=== PATIENT | female | born 1980 | race Caucasian/White ===

== ENCOUNTER 2016-12-09 07:48 | Emergency (ER) | payer MEDICARE, OTHER ==
[2016-12-09] MEDS ORDERED: NS 0.9% 1000 ML* 2,000 ML IV ONE (08:06)
[2016-12-09] MEDS ORDERED: Ketorolac INJ* 30 MG/ML 1 ML VIAL IV ONE (08:06)
[2016-12-09] MEDS ORDERED: Acetaminophen TAB* 325 MG PO ONE (08:06)
[2016-12-09 08:09] VITALS: BP 133/75
--- NOTE | 2016-12-09 08:13 | ED ---
Influenza-Like Illness - HPI Summary HPI Summary: Patient presents with two days of chest congestion, body aches, chills and fatigue. She is worried she has the flu. She says she has felt too bad to get to [facility]. No LEROY, neck pain, flank pain, constipation, N/V/D. - History of Current Complaint Time Seen by Provider: 12/09/16 07:53 Hx Obtained From: Patient Onset/Duration: Gradual Onset Severity: Severe Associated Signs & Symptoms: Myalgia, Nasal Congestion Related Hx: Possible Flu/Infectious Exposure - Allergy/Home Medications Allergies/Adverse Reactions: Allergies Allergy/AdvReac Type Severity Reaction Status Date / Time No Known Allergies Allergy Verified 03/08/16 13:05 PMH/Surg Hx/FS Hx/Imm Hx Endocrine/Hematology History: Reports: Hx Diabetes - gestational, Hx Thyroid Disease - nodule removed Cardiovascular History: Denies: Hx Hypertension Respiratory History: Denies: Hx Asthma, Hx Chronic Obstructive Pulmonary Disease (COPD) GI History: Denies: Hx Ulcer Psychiatric History: Reports: Hx of Violent Episodes Against Others Denies: Hx Eating Disorder - Surgical History Surgery Procedure, Year, and Place: 2 C-SECTIONS. PARTIAL THYROIDECTOMY Infectious Disease History: Reports: Hx Shingles, History Other Infectious Disease - gonorrhea Denies: Hx Clostridium Difficile, Hx Hepatitis, Hx Human Immunodeficiency Virus (HIV), Hx of Known/Suspected MRSA, Hx Tuberculosis, Traveled Outside the [place] in Last 30 Days - Family History Known Family History: Positive: None - Social History Occupation: Unemployed Lives: Alone Alcohol Use: Occasionally Hx Substance Use: Yes Substance Use Type: Reports: Marijuana Substance Use Comment - Amount & Last Used: 12/15/15 Hx Tobacco Use: No Smoking Status (MU): Never Smoked Tobacco Review of Systems Positive: Chills, Fatigue. Negative: Fever Negative: Sore Throat, Ear Ache Negative: Chest Pain Positive: Cough, Other - chest congestion. Negative: Shortness Of Breath Negative: Vomiting, Diarrhea Positive: Myalgia Negative: Rash Negative: Headache, Weakness, Paresthesia, Numbness All Other Systems Reviewed And Are Negative: Yes Physical Exam Triage Information Reviewed: Yes Vital Signs Reviewed: Yes Appearance: Positive: No Pain Distress, Ill-Appearing - patient appears uncomfortable but not toxic, Obese Skin: Positive: Warm, Skin Color Reflects Adequate Perfusion, Dry, Soft Head/Face: Positive: Normal Head/Face Inspection Eyes: Positive: EOMI, STEFAN, Conjunctiva Clear ENT: Positive: Hearing grossly normal Neck: Positive: Supple, Nontender, No Lymphadenopathy Respiratory/Lung Sounds: Positive: Clear to Auscultation, Breath Sounds Present Cardiovascular: Positive: RRR Abdomen Description: Positive: Nontender, Soft Bowel Sounds: Positive: Present Musculoskeletal: Positive: Strength/ROM Intact. Negative: Edema Left, Edema Right Neurological: Positive: Sensory/Motor Intact, Alert, Oriented to Person Place, Time, NV Bundle Intact Distally Psychiatric: Positive: Affect/Mood Appropriate AVPU Assessment: Alert Diagnostics - Laboratory Lab Results: Positive influenza swab Result Diagrams: 12/09/16 08:48 12/09/16 08:48 Lab Statement: Any lab studies that have been ordered have been reviewed, and results considered in the medical decision making process. Re-Evaluation - Re-Evaluation First Eval Re-Evaluation Time: 10:35 Change: Improved Comment: Patient feels like her symptoms have improved. Flu Symptom Course/Dx - Diagnoses Differential Diagnosis/HQI/PQRI: Positive: Bronchitis, Influenza, Pneumonia, RSV , Upper Respiratory Infection Provider Diagnoses: Influenza Discharge - Discharge Plan Condition: Stable Disposition: HOME Prescriptions: Oseltamivir CAP* [Tamiflu CAP*] 75 mg PO BID #9 cap Patient Education Materials: Influenza (ED) Referrals: Richard Em MD [Primary Care Provider] - Additional Instructions: Please take the flu medication as directed for the next 5 days to help decrease your symptoms. You can use ibuprofen 600mg three times daily with meals and Tylenol 650mg every 4 hours to help reduce fever and pain. Drink extra fluids and get extra rest. Follow-up with your primary care provider if your symptoms do not begin to improve in 3-5 days. Return to the emergency department if your symptoms worsen.
[2016-12-09 09:08] LABS: Hematocrit 43 % (35-47); Hemoglobin 14.1 g/dl (12.0-16.0); Mean Corpuscular HGB Conc 32 g/dl (31-36); Mean Corpuscular Hemoglobin 29 pg (27-31); Mean Corpuscular Volume 89 fL (80-97); Mean Platelet Volume 9 um3 (7.4-10.4); Red Blood Count 4.87 10^6/ul (4.0-5.4); Red Cell Distribution Width 15 % (10.5-15); White Blood Count 5.4 10^3/ul (3.5-10.8)
[2016-12-09 09:15] LABS: Albumin 4.4 g/dL (3.2-5.2); BUN/Creatinine Ratio 24.1 (8-20); C Reactive Protein 23.43 mg/L (< 5.00); Calcium 9.3 mg/dL (8.6-10.3); EGFR African American 100.6 (>60); EGFR Non-African American 78.2 (>60); Globulin 3.2 g/dL (2-4); Potassium 3.8 mmol/L (3.5-5.0); Total Bilirubin 0.4 mg/dL (0.2-1.0); Total Protein 7.6 g/dL (6.4-8.9)
[2016-12-09] MEDS ORDERED: Oseltamivir CAP* 75 MG PO ONE (09:19)
== END 2016-12-09 11:30 | disposition home or self-care (01) ==
LOC: ED 07:48
DX: J11.1 Influenza due to unidentified influenza virus with other respiratory manifestations (principal); R09.89 Other specified symptoms and signs involving the circulatory and respiratory systems; R05 Cough
CPT/HCPCS: 36415; 80053; 85025; 86140; 87502; 96374; 99282; A9270-GY; J1885

== ENCOUNTER 2017-02-05 16:03 | Emergency (ER) | payer MEDICARE, MEDICAID ==
[2017-02-05 17:27] LABS: Urine Bacteria Absent (Absent); Urine Bilirubin Negative (Negative); Urine Glucose Negative (Negative); Urine Nitrite Negative (Negative)
[2017-02-05 17:36] LABS: Hematocrit 40 % (35-47); Mean Corpuscular HGB Conc 33 g/dl (31-36); Mean Corpuscular Hemoglobin 29 pg (27-31); Mean Corpuscular Volume 90 fL (80-97); Mean Platelet Volume 9 um3 (7.4-10.4); Red Blood Count 4.41 10^6/ul (4.0-5.4); Red Cell Distribution Width 15 % (10.5-15); White Blood Count 10.2 10^3/ul (3.5-10.8)
[2017-02-05 17:42] LABS: Benzodiazepine Urine Screen None Detected (None Detect)
[2017-02-05 17:47] LABS: TSH (Thyroid Stimulating Horm) 1.11 mcIU/mL (0.34-5.60)
[2017-02-05 17:54] LABS: ALT 15 U/L (7-52); AST 15 U/L (13-39); Albumin 4.1 g/dL (3.2-5.2); Alkaline Phosphatase 48 U/L (34-104); Anion Gap 6 mmol/L (2-11); BUN/Creatinine Ratio 23.5 (8-20); Blood Urea Nitrogen 16 mg/dL (6-24); CO2 Carbon Dioxide 28 mmol/L (22-32); Calcium 8.7 mg/dL (8.6-10.3); Chloride 104 mmol/L (101-111); EGFR African American 126.6 (>60); EGFR Non-African American 98.5 (>60); Globulin 2.7 g/dL (2-4); Glucose 116 mg/dL (70-100); Potassium 3.8 mmol/L (3.5-5.0); Sodium 138 mmol/L (133-145); Total Protein 6.8 g/dL (6.4-8.9)
[2017-02-05 17:56] LABS: Acetaminophen < 15 mcg/mL; Alcohol < 10 mg/dL (<10); Salicylate < 2.50 mg/dL (<30)
--- NOTE | 2017-02-05 18:58 | ED ---
Manohar Dc Adam, scribed for Kiran Lewis MD on 02/05/17 at 1717 . Psychiatric Complaint - HPI Summary HPI Summary: Pt is a 36 year old female presenting with SI. She states that she "said some things" but at this time she denies having a plan to harm herself. She states that she has been feeling depressed, lonely, and overwhelmed and does not have many people to talk to. She thinks she might have depression. Pt was on antidepressants but quit taking them because she didn't like the way they made her feel. When asked if her sleep has been ok, she states "kind of." She states that her appetite has not been good. She denies hearing voices. Pt has an appt with her therapist in 3 days but did not want to wait that long to be seen. She has been admitted for depression here before. She denies any recent illness. Negative tobacco/alcohol/drug use. - History Of Current Complaint Chief Complaint: EDMentalHealth Time Seen by Provider: 02/05/17 17:14 Hx Obtained From: Patient Onset/Duration: Gradual Onset, Lasting Days, Still Present Timing: Constant Severity Initially: Moderate Severity Currently: Moderate Character: Depressed Aggravating Factor(s): Recent Stress - Feeling overwhelmed with not many people to talk to, Medication Non-compliance - Recently went off antidepressants, Other - Alleviating Factor(s): Nothing Associated Signs And Symptoms: Positive: Sleep Disturbance, Appetite Change Related History: Positive For: Prior Psychiatric Issues Has Suicidal: Reports: Thoughts. Denies: With A Plan - Allergies/Home Medications Allergies/Adverse Reactions: Allergies Allergy/AdvReac Type Severity Reaction Status Date / Time No Known Allergies Allergy Verified 03/08/16 13:05 PMH/Surg Hx/FS Hx/Imm Hx Endocrine/Hematology History: Reports: Hx Diabetes - gestational, Hx Thyroid Disease - nodule removed Cardiovascular History: Denies: Hx Hypertension Respiratory History: Denies: Hx Asthma, Hx Chronic Obstructive Pulmonary Disease (COPD) GI History: Denies: Hx Ulcer Psychiatric History: Reports: Hx of Violent Episodes Against Others Denies: Hx Eating Disorder - Surgical History Surgery Procedure, Year, and Place: 2 C-SECTIONS. PARTIAL THYROIDECTOMY Infectious Disease History: No Infectious Disease History: Reports: Hx Shingles, History Other Infectious Disease - gonorrhea Denies: Hx Clostridium Difficile, Hx Hepatitis, Hx Human Immunodeficiency Virus (HIV), Hx of Known/Suspected MRSA, Hx Tuberculosis, Traveled Outside the [place] in Last 30 Days - Family History Known Family History: Positive: Other - Anxiety disorders, depression - Social History Occupation: Unemployed Lives: With Family - Mother Alcohol Use: Occasionally Hx Substance Use: Yes Substance Use Type: Reports: Marijuana Substance Use Comment - Amount & Last Used: 12/15/15 Hx Tobacco Use: No Smoking Status (MU): Never Smoked Tobacco Review of Systems Negative: Fever Skin: Negative Positive: Depressed All Other Systems Reviewed And Are Negative: Yes Physical Exam - Summary Physical Exam Summary: The patient is well-nourished in no acute distress and in no acute pain. The skin is warm and dry and skin color reflects adequate perfusion. No cuts on arms. HEENT: The head is normocephalic and atraumatic. The pupils are equal and reactive. The conjunctivae are clear and without drainage. Nares are patent and without drainage. Mouth reveals moist mucous membranes and the throat is without erythema and exudate. The external ears are intact. Neck is supple with full range of motion and non-tender. There are no carotid bruits. There is no neck vein distension. Respiratory: Chest is non-tender. Lungs are clear to auscultation and breath sounds are symmetrical and equal. Cardiovascular: Heart is regular rate and rhythm. There is no murmur or rub auscultated. There is no peripheral edema and pulses are symmetrical and equal. Abdomen: The abdomen is soft and non-tender. There are normal bowel sounds heard in all four quadrants and there is no organomegaly palpated. Musculoskeletal: There is no back pain noted. Extremities are non-tender with full range of motion. There is good capillary refill. There is no peripheral edema or calf tenderness elicited. No ankle swelling. Neurological: Patient is alert and oriented to person, place and time. The patient has symmetrical motor strength in all four extremities. Cranial nerves are grossly intact. Deep tendon reflexes are symmetrical and equal in all four extremities. Psychiatric: The patient appears depressed. Triage Information Reviewed: Yes Vital Signs On Initial Exam: Initial Vitals Temp Pulse Resp BP Pulse Ox 98.1 F 74 16 122/74 98 02/05/17 16:24 02/05/17 16:24 02/05/17 16:24 02/05/17 16:24 02/05/17 16:24 Vital Signs Reviewed: Yes Diagnostics - Vital Signs Vital Signs Temp Pulse Resp BP Pulse Ox 02/05/17 16:24 98.1 F 74 16 122/74 98 - Laboratory Lab Results: Lab Results 02/05/17 02/05/17 02/05/17 Range/Units 16:15 16:15 16:15 WBC 10.2 (3.5-10.8) 10^3/ul RBC 4.41 (4.0-5.4) 10^6/ul Hgb 13.0 (12.0-16.0) g/dl Hct 40 (35-47) % MCV 90 (80-97) fL MCH 29 (27-31) pg MCHC 33 (31-36) g/dl RDW 15 (10.5-15) % Plt Count 312 (150-450) 10^3/ul MPV 9 (7.4-10.4) um3 Neut % (Auto) 73.9 (38-83) % Lymph % (Auto) 18.3 L (25-47) % Chaves % (Auto) 6.7 (1-9) % Eos % (Auto) 0.4 (0-6) % Baso % (Auto) 0.7 (0-2) % Absolute Neuts (auto) 7.5 (1.5-7.7) 10^3/ul Absolute Lymphs (auto) 1.9 (1.0-4.8) 10^3/ul Absolute Monos (auto) 0.7 (0-0.8) 10^3/ul Absolute Eos (auto) 0 (0-0.6) 10^3/ul Absolute Basos (auto) 0.1 (0-0.2) 10^3/ul Absolute Nucleated RBC 0.01 10^3/ul Nucleated RBC % 0.1 Sodium 138 (133-145) mmol/L Potassium 3.8 (3.5-5.0) mmol/L Chloride 104 (101-111) mmol/L Carbon Dioxide 28 (22-32) mmol/L Anion Gap 6 (2-11) mmol/L BUN 16 (6-24) mg/dL Creatinine 0.68 (0.51-0.95) mg/dL Est GFR ( Amer) 126.6 (>60) Est GFR (Non-Af Amer) 98.5 (>60) BUN/Creatinine Ratio 23.5 H (8-20) Glucose 116 H (70-100) mg/dL Calcium 8.7 (8.6-10.3) mg/dL Total Bilirubin 0.40 (0.2-1.0) mg/dL AST 15 (13-39) U/L ALT 15 (7-52) U/L Alkaline Phosphatase 48 (34-104) U/L Total Protein 6.8 (6.4-8.9) g/dL Albumin 4.1 (3.2-5.2) g/dL Globulin 2.7 (2-4) g/dL Albumin/Globulin Ratio 1.5 (1-3) TSH 1.11 (0.34-5.60) mcIU/mL Beta HCG, Quant Pending Urine Color Yellow Urine Appearance Clear Urine pH 6.0 (5-9) Ur Specific [place] 1.032 H (1.010-1.030) Urine Protein Negative (Negative) Urine Ketones Negative (Negative) Urine Blood 2+ H (Negative) Urine Nitrate Negative (Negative) Urine Bilirubin Negative (Negative) Urine Urobilinogen Negative (Negative) Ur Leukocyte Esterase Negative (Negative) Urine WBC (Auto) Absent (Absent) Urine RBC (Auto) Absent (Absent) Urine Bacteria Absent (Absent) Urine Glucose Negative (Negative) Urine Ascorbic Acid * H (Negative) Salicylates < 2.50 (<30) mg/dL Urine Opiates Screen (None Detect) Acetaminophen < 15 mcg/mL Ur Barbiturates Screen (None Detect) Ur Phencyclidine Scrn (None Detect) Ur Amphetamines Screen (None Detect) U Benzodiazepines Scrn (None Detect) Urine Cocaine Screen (None Detect) U Cannabinoids Screen (None Detect) Serum Alcohol < 10 (<10) mg/dL 02/05/17 Range/Units 16:15 WBC (3.5-10.8) 10^3/ul RBC (4.0-5.4) 10^6/ul Hgb (12.0-16.0) g/dl Hct (35-47) % MCV (80-97) fL MCH (27-31) pg MCHC (31-36) g/dl RDW (10.5-15) % Plt Count (150-450) 10^3/ul MPV (7.4-10.4) um3 Neut % (Auto) (38-83) % Lymph % (Auto) (25-47) % Chaves % (Auto) (1-9) % Eos % (Auto) (0-6) % Baso % (Auto) (0-2) % Absolute Neuts (auto) (1.5-7.7) 10^3/ul Absolute Lymphs (auto) (1.0-4.8) 10^3/ul Absolute Monos (auto) (0-0.8) 10^3/ul Absolute Eos (auto) (0-0.6) 10^3/ul Absolute Basos (auto) (0-0.2) 10^3/ul Absolute Nucleated RBC 10^3/ul Nucleated RBC % Sodium (133-145) mmol/L Potassium (3.5-5.0) mmol/L Chloride (101-111) mmol/L Carbon Dioxide (22-32) mmol/L Anion Gap (2-11) mmol/L BUN (6-24) mg/dL Creatinine (0.51-0.95) mg/dL Est GFR ( Amer) (>60) Est GFR (Non-Af Amer) (>60) BUN/Creatinine Ratio (8-20) Glucose (70-100) mg/dL Calcium (8.6-10.3) mg/dL Total Bilirubin (0.2-1.0) mg/dL AST (13-39) U/L ALT (7-52) U/L Alkaline Phosphatase (34-104) U/L Total Protein (6.4-8.9) g/dL Albumin (3.2-5.2) g/dL Globulin (2-4) g/dL Albumin/Globulin Ratio (1-3) TSH (0.34-5.60) mcIU/mL Beta HCG, Quant Urine Color Urine Appearance Urine pH (5-9) Ur Specific Lyon (1.010-1.030) Urine Protein (Negative) Urine Ketones (Negative) Urine Blood (Negative) Urine Nitrate (Negative) Urine Bilirubin (Negative) Urine Urobilinogen (Negative) Ur Leukocyte Esterase (Negative) Urine WBC (Auto) (Absent) Urine RBC (Auto) (Absent) Urine Bacteria (Absent) Urine Glucose (Negative) Urine Ascorbic Acid (Negative) Salicylates (<30) mg/dL Urine Opiates Screen None detected (None Detect) Acetaminophen mcg/mL Ur Barbiturates Screen None detected (None Detect) Ur Phencyclidine Scrn None detected (None Detect) Ur Amphetamines Screen None detected (None Detect) U Benzodiazepines Scrn None detected (None Detect) Urine Cocaine Screen None detected (None Detect) U Cannabinoids Screen Presumptive positive H (None Detect) Serum Alcohol (<10) mg/dL Result Diagrams: 02/05/17 16:15 02/05/17 16:15 Lab Statement: Any lab studies that have been ordered have been reviewed, and results considered in the medical decision making process. Course/Dx - Differential Dx/Clinical Impression Differential Diagnosis/HQI/PQRI: Positive: Depression, Suicidal Ideation Provider Diagnosis: Depression, Suicidal ideation Discharge - Discharge Plan Condition: Stable Disposition: OTHER Discharge Disposition Comment: Pending mental health evaluation Referrals: Richard Em MD [Primary Care Provider] - The documentation as recorded by the Manohar vogel Adam accurately reflects the service I personally performed and the decisions made by me, Kiran Lewis MD.
[2017-02-05] MEDS ORDERED: Haloperidol INJ IV/IM* 5 MG/ML AMP IM ONE (19:53)
[2017-02-05] MEDS ORDERED: LORazepam INJ* 2 MG/ML 1 ML VIAL IM ONE ×2 (19:53→19:56)
[2017-02-05] MEDS ORDERED: diPHENhydraMINE IV* 50 MG/ML 1 ml VIAL (BENADRYL) IM ONE (19:53)
[2017-02-05] MEDS ORDERED: LORazepam INJ* 2 MG/ML 1 ML VIAL ONE (19:55)
[2017-02-05] MEDS ORDERED: diPHENhydraMINE IV* 50 MG/ML 1 ml VIAL (BENADRYL) ONE (19:56)
[2017-02-05] MEDS ORDERED: Haloperidol INJ IV/IM* 5 MG/ML AMP ONE (19:56)
[2017-02-06 07:07] VITALS: BP 126/80
[2017-02-06] MEDS ORDERED: Citalopram TAB* 10 MG PO SCH (09:00)
== END 2017-02-06 11:00 | disposition home or self-care (01) ==
LOC: ED 16:03
DX: F32.9 Major depressive disorder, single episode, unspecified (principal); R45.851 Suicidal ideations; G47.9 Sleep disorder, unspecified
CPT/HCPCS: 36415; 80053; 80307; 80320; 80329; 81003; 81015; 84443; 84702; 85025; 96374; 96375; 99285; G0480; J1200; J1630; J2060

== ENCOUNTER 2017-04-27 10:11 | Emergency (ER) | payer MEDICARE, MEDICAID ==
[2017-04-27 10:16] VITALS: BP 141/86
[2017-04-27] MEDS ORDERED: Acetaminophen TAB* 325 MG PO ONE (11:26)
--- NOTE | 2017-04-27 11:27 | UC ---
Konrad Dc Salem, scribed for Rebeca Oglesby MD on 04/27/17 at 1105 . Upper Extremity HPI - HPI Summary HPI Summary: Patient is a 36 y/o F who presents to the with right shoulder pain x 3 days. Pt states increased since last night. She reports pain shooting down her arm yesterday, but denies numbness or tingling. Pt denies any recent trauma or anyone causing injury. She reports taking Ibuprofen this morning (a couple of hours ago) with improvement of sx. Pt denies elbow and wrist pain. No ext weakness. No cp, sob. No other complaints, Pt denies hx of surgery to extremity , but is unsure if she has hx of pain to extremity. Pt is right-handed. She reports taking medication for depression. NKDA. Patients medication reviewed this visit. - History of Current Complaint Chief Complaint: UCUpperExtremity Stated Complaint: SHOULDER PAIN Time Seen by Provider: 04/27/17 10:58 Hx Obtained From: Patient Hx Last Menstrual Period: 04/19/17 Onset/Duration: Gradual Onset, Still Present Severity Initially: Moderate Severity Currently: Moderate Pain Intensity: 5 Pain Scale Used: 0-10 Numeric Location Of Pain: Is Discrete @ - Right shoulder. Aggravating Factor(s): Movement Alleviating Factor(s): Rest Associated Signs And Symptoms: Positive: Negative - Allergies/Home Medications Allergies/Adverse Reactions: Allergies Allergy/AdvReac Type Severity Reaction Status Date / Time No Known Allergies Allergy Verified 03/08/16 13:05 PMH/Surg Hx/FS Hx/Imm Hx Previously Healthy: Yes Psychological History: Depression - Surgical History Surgical History: Yes Surgery Procedure, Year, and Place: 2 C-SECTIONS. PARTIAL THYROIDECTOMY - Family History Known Family History: Positive: Other - Anxiety disorders, depression. No fhx of shoulder pain. Negative: Hypertension - Social History Occupation: Unemployed Lives: Alone Alcohol Use: None Substance Use Type: None Substance Use Comment - Amount & Last Used: 12/15/15 Smoking Status (MU): Never Smoked Tobacco - Immunization History Most Recent Influenza Vaccination: 08/17 Most Recent Tetanus Shot: unk Most Recent Pneumonia Vaccination: n/a Review of Systems Constitutional: Negative Skin: Negative Motor: Decreased ROM - second to pain Neurovascular: Negative Musculoskeletal: Other: - Right shoulder pain. Neurological: Negative All Other Systems Reviewed And Are Negative: Yes Physical Exam Triage Information Reviewed: Yes Appearance: Well-Appearing, Well-Nourished, Pain Distress - discomfort right shoulder Vital Signs: Initial Vital Signs Temp 98.3 F 04/27/17 10:13 Pulse 97 04/27/17 10:13 Resp 16 04/27/17 10:13 BP 141/86 04/27/17 10:13 Pulse Ox 100 04/27/17 10:13 Eye Exam: Normal Eyes: Negative: Discharge ENT Exam: Normal ENT: Positive: Hearing grossly normal Neck exam: Normal Neck: Positive: Supple, Nontender. Negative: Nuchal Rigidity Respiratory Exam: Normal Respiratory: Positive: Lungs clear, Normal breath sounds, No respiratory distress, No accessory muscle use Cardiovascular Exam: Normal Cardiovascular: Positive: RRR, No Murmur, Pulses Normal, Other: - 2+ radial, 2+ ulnar, CBT < 2 sec Musculoskeletal: Positive: Other: - + TTP right anterior shoulder with direct palpation no pain right humerus, right elbow, wrist + flext. ext wrist, elbow + pronate/supinate right elbow AROM abduction 45 degrees - limited second to pain - PROM to 90 - states feels better supported AROM extension to 30 -limited second to pain - PROM to 90 Neurological: Positive: Alert, Other: - + thumb up, a ok, finger cross, finger spread + gross sensation throughout hand Psychological Exam: Normal Skin Exam: Normal Diagnostics - Radiology RIGHT SHOULDER XR Radiology Interpretation Completed By: Radiologist - IMPRESSION: FINDINGS MOST CONSISTENT WITH CALCIFIC TENDINITIS. Re-Evaluation - Re-Evaluation First Eval Re-Evaluation Time: 12:32 Comment: Informed pt of imaging results and discussed plan. sling. reviewed shoulder exercises with pt - small shoulder circles, bend/straighten elbow. ice. Motrin/APAP. PCP f/u. work note requested for day program. PT states pain improved with sling Upper Extremity Course/Dx - Course Course Of Treatment: Blood pressure noted and patient informed to follow up with PCP. Pt with right anterior, non traumatic shoulder pain - limiting AROM - improved with passrive movement. neurologically intact. will check imaging for ? spur. anticipate sling. motrin/apap. rest. pcp f/u - Differential Dx/Diagnosis Provider Diagnoses: shoulder calcified tendonitis Discharge - Discharge Plan Condition: Stable Disposition: HOME Patient Education Materials: Calcific Tendinitis (ED) Forms: *Work Release Referrals: Richard Em MD [Primary Care Provider] - Additional Instructions: - - Apply ice (wrapped in a towel) 20 minutes at a time, 2-3 times a day - Okay to alternate ibuprofen (Advil, Motrin) 600mg and tylenol every 3 hours for pain. Take with food. Do NOT take for more than 4-5 day s - WEar sling for comfort. Remove your sling from your shoulder 4 times a day - slowly make circles at your shoulder and bend/straighten your shoulder as demonstrated by your doctor - call your doctor to schedule a follow-up appointment early next week. Call your doctor or return with questions or concerns The documentation as recorded by the Konrad vogel Salem accurately reflects the service I personally performed and the decisions made by , Rebeca Oglesby MD.
--- NOTE | 2017-04-27 12:09 | RAD ---
INDICATION: Right shoulder pain. TECHNIQUE: 4 views of the right shoulder were obtained. FINDINGS: The bones are in normal alignment. No fracture is seen. There is a calcific density adjacent to the superolateral aspect of the humeral head most consistent with calcific tendinitis. IMPRESSION: FINDINGS MOST CONSISTENT WITH CALCIFIC TENDINITIS.
== END 2017-04-27 12:38 | disposition home or self-care (01) ==
LOC: UCEAST 10:11
DX: M75.31 Calcific tendinitis of right shoulder (principal); F32.9 Major depressive disorder, single episode, unspecified; E89.0 Postprocedural hypothyroidism
CPT/HCPCS: 99213; A9270-GY; G0463

== ENCOUNTER 2017-05-18 15:27 | Emergency (ER) | payer MEDICARE, MEDICAID ==
[2017-05-18 16:04] VITALS: BP 128/94
[2017-05-18] MEDS ORDERED: cefTRIAXone(*) 1 GM in NS 0.9% 50 ML* 50 ML IVPB ONE (18:07)
[2017-05-18] MEDS ORDERED: Ketorolac INJ* 30 MG/ML 1 ML VIAL IM ONE (18:20)
--- NOTE | 2017-05-18 18:59 | ED ---
Yanci Dc Auryana, scribed for Adam Velez MD on 05/18/17 at 1558 . GI/ HPI - HPI Summary HPI Summary: 36 year old female presents to the ED with vaginal pain starting 5 days ago worse since today. Pain is aggravated when sitting. She denies any fever, chills , nausea, or vomiting. She is currently on Cephalexin. Patient has had an episode prior - seen at [facility]. PMHx is significant for gonorrhea and bartholin's cyst. She is a patient at [facility]. - History of Current Complaint Chief Complaint: EDOBProblems Time Seen by Provider: 05/18/17 15:54 Stated Complaint: ABD PAIN Hx Obtained From: Patient Onset/Duration: Started Days Ago, Still Present, Worse Since - today Timing: Constant Severity: Moderate Current Severity: Moderate Additional Location for Females: Vulva Associated Signs and Symptoms: Negative: Nausea, Vomiting, Fever, Chills Additional Signs & Symptoms: Positive: STD - PMHx Aggravating Factor(s): Sitting - Allergy/Home Medications Allergies/Adverse Reactions: Allergies Allergy/AdvReac Type Severity Reaction Status Date / Time No Known Allergies Allergy Verified 03/08/16 13:05 Home Medications: Home Medications Cephalexin CAP* [Keflex CAP*] 500 mg PO QID 05/18/17 [History Confirmed 05/18/17 ] Escitalopram (NF) [Lexapro 10 mg (NF)] 10 mg PO DAILY 05/18/17 [History Confirmed 05/18/17] PMH/Surg Hx/FS Hx/Imm Hx Endocrine/Hematology History: Reports: Hx Diabetes - gestational, Hx Thyroid Disease - nodule removed Cardiovascular History: Denies: Hx Hypertension Respiratory History: Denies: Hx Asthma, Hx Chronic Obstructive Pulmonary Disease (COPD) GI History: Denies: Hx Ulcer Psychiatric History: Reports: Hx of Violent Episodes Against Others Denies: Hx Eating Disorder - Surgical History Surgery Procedure, Year, and Place: 2 C-SECTIONS. PARTIAL THYROIDECTOMY Infectious Disease History: Reports: Hx Shingles, History Other Infectious Disease - gonorrhea Denies: Hx Clostridium Difficile, Hx Hepatitis, Hx Human Immunodeficiency Virus (HIV), Hx of Known/Suspected MRSA, Hx Tuberculosis, Hx Known/Suspected VRE , Hx Known/Suspected VRSA, Traveled Outside the in Last 30 Days - Family History Known Family History: Positive: Other - Anxiety disorders, depression. Negative: Hypertension - Social History Occupation: Unemployed Lives: Alone Alcohol Use: None Hx Substance Use: Yes Substance Use Type: Reports: None Substance Use Comment - Amount & Last Used: 12/15/15 Hx Tobacco Use: No Smoking Status (MU): Never Smoked Tobacco Review of Systems Constitutional: Negative Negative: Fever, Chills Eyes: Negative ENT: Negative Cardiovascular: Negative Respiratory: Negative Gastrointestinal: Negative Negative: Vomiting, Nausea Positive: pain - vaginal area Musculoskeletal: Negative Skin: Negative Neurological: Negative Psychological: Normal All Other Systems Reviewed And Are Negative: Yes Physical Exam - Summary Physical Exam Summary: VITAL SIGNS: Reviewed. GENERAL: Patient is a well-developed and nourished female who is lying comfortable in the stretcher. Patient is not in any acute respiratory distress. HEAD AND FACE: Normocephalic and atraumatic. EYES: PERRLA, EOMI x 2, No injected conjunctiva. EARS: Hearing grossly intact. Ear canals and tympanic membranes are WNL. MOUTH: Oropharynx within normal limits. NECK: Supple, trachea is midline, no adenopathy, no JVD. CHEST: Symmetric, no tenderness at palpation LUNGS: Clear to auscultation bilaterally. No wheezing or crackles. CVS: RRR, S1 and S2 present, no murmurs or gallops appreciated. ABDOMEN: Soft, non-tender. No signs of distention. Positive bowel sounds. No rebound no guarding, and no masses palpated. No abdominal bruit or pulsations. EXTREMITIES: FROM in all major joints, no edema, no cyanosis or clubbing. NEURO: Alert and oriented x 3. No acute neurological deficits. Speech is normal. SKIN: Dry and warm : Positive Bartholin's Gland Cyst. Triage Information Reviewed: Yes Vital Signs On Initial Exam: Initial Vitals Temp Pulse Resp BP Pulse Ox 98.2 F 73 20 128/94 100 05/18/17 15:56 05/18/17 15:56 05/18/17 15:56 05/18/17 15:56 05/18/17 15:56 Vital Signs Reviewed: Yes Procedures - Procedure Summary Procedure Summary: Copious purulent drainage. - Incision and Drainage Site: vulva Anesthesia: Lidocaine - 2 % Instrument(s): Scalpel - 11-blade Packing: Other - iodoform packing Diagnostics - Vital Signs Vital Signs Temp Pulse Resp BP Pulse Ox 05/18/17 15:56 98.2 F 73 20 128/94 100 - Laboratory Lab Statement: Any lab studies that have been ordered have been reviewed, and results considered in the medical decision making process. GIGU Course/Dx - Course Assessment/Plan: 36 year old female presents to the ED with vaginal pain starting 5 days ago worse since today. Pain is aggravated when sitting. She denies any fever, chills, nausea, or vomiting. She is currently on Cephalexin. Patient has had an episode prior - seen at [facility]. PMHx is significant for gonorrhea and bartholin's cyst. She is a patient at [facility]. The patient has a Bartholins cyst for which I used septic precautions and did an incision and drainage. There was copious amount of purulent material and I did send for cultures. I placed packing within wound. The patient given 1 dose Rocephin and will be discharged home with Bactrim. The patient was also given 1 dose of Toradol for pain. Patient will be discharged back to [facility] with follow up to PCP in 2 days or return the ED for wound check. Patient is A&OX3 and hemodynamically stable. I discussed all the findings and test results with the patient. Patient was instructed to return to the emergency room immediately if any of the symptoms return or worsens. Plan of care was discussed with the patient and understands and agrees. All questions were answered at patient satisfaction. There were no further complaints or concerns. Lung exam before discharge: CTA B/L. Good air exchange. No wheezing or crackles heard. CVS: S1 and S2 present. No murmurs appreciated. Patient is alert and oriented x 3. Patient is hemodynamically stable. Patient will be discharged home with follow up PCP in the next 2-3 days or return to ED in 2-3 days for wound check - Diagnoses Differential Diagnoses - Female: Other - Abscess, cellulitis Provider Diagnoses: Bartholin cyst Discharge - Discharge Plan Condition: Stable Disposition: HOME Prescriptions: Sulfamethox/Trimethoprim DS* [Bactrim DS 800/160 TAB*] 1 tab PO BID #20 tab Patient Education Materials: Bartholin Cyst (ED) Referrals: [facility] [Outside] - 2 Days The documentation as recorded by the Yanci vogel Auryana accurately reflects the service I personally performed and the decisions made by me, Adam Velez MD.
== END 2017-05-18 19:39 | disposition home or self-care (01) ==
LOC: ED 15:27
DX: N75.0 Cyst of Bartholin's gland (principal); Z86.32 Personal history of gestational diabetes; E89.0 Postprocedural hypothyroidism
CPT/HCPCS: 87070; 87205; 87640; 87641; 96372; 99283; J0696; J1885

== ENCOUNTER 2017-05-20 19:58 | Emergency (ER) | payer MEDICARE, MEDICAID ==
[2017-05-20 20:07] VITALS: BP 131/81
--- NOTE | 2017-05-20 22:21 | UC ---
Skin Complaint HPI - HPI Summary HPI Summary: 2 days ago had a Martín. Cyst drained left side of vagina---packing has come out on is bridget having a small amount of drainage. current area is 6x2 cm of induration with out fluctuance---patient reports less tenderness and is here to get a follow up as recommended-- - History of Current Complaint Chief Complaint: EDGeneral Time Seen by Provider: 05/20/17 21:06 Stated Complaint: RECHECK/REPACK CYST Hx Obtained From: Patient Hx Last Menstrual Period: 04/19/17 ?: No Onset/Duration: Gradual Onset, Lasting Days, Still Present Skin Exposure Onset/Duration: Days Ago Timing: Constant Onset Severity: Moderate Current Severity: Mild Pain Intensity: 0 Location: Discrete - left side of vagina spreading to labia Character: Swelling, Raised, Painful Aggravating: Touch Alleviating: Other - pat reports pain relief after drainage 2 days ago Associated Signs & Symptoms: Positive: Negative - Allergy/Home Medications Allergies/Adverse Reactions: Allergies Allergy/AdvReac Type Severity Reaction Status Date / Time No Known Allergies Allergy Verified 03/08/16 13:05 Review of Systems Constitutional: Negative Skin: Other - abscess left labia and side of vagina Eyes: Negative ENT: Negative Respiratory: Negative Cardiovascular: Negative Gastrointestinal: Negative Genitourinary: Negative Motor: Negative Neurovascular: Negative Musculoskeletal: Negative Neurological: Negative Psychological: Negative All Other Systems Reviewed And Are Negative: Yes PMH/Surg Hx/FS Hx/Imm Hx Previously Healthy: No Psychological History: Depression, Other Other Psychological History: 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 PARTIAL THYROIDECTOMY - Family History Known Family History: Positive: None, Other - Anxiety disorders, depression. Negative: Hypertension - Social History Occupation: Disabled Lives: Long-Term Alcohol Use: None Substance Use Type: None Substance Use Comment - Amount & Last Used: 12/15/15 Smoking Status (MU): Never Smoked Tobacco - Immunization History Most Recent Influenza Vaccination: 08/17 Most Recent Tetanus Shot: unk Most Recent Pneumonia Vaccination: n/a Physical Exam Triage Information Reviewed: Yes Appearance: Well-Appearing, No Pain Distress, Well-Nourished Vital Signs: Initial Vital Signs Temp 98.4 F 05/20/17 20:05 Pulse 80 05/20/17 20:05 Resp 18 05/20/17 20:05 BP 131/81 05/20/17 20:05 Pulse Ox 98 05/20/17 20:05 Vital Signs Reviewed: Yes Eye Exam: Normal Eyes: Positive: Conjunctiva Clear ENT Exam: Normal ENT: Positive: Normal ENT inspection, Hearing grossly normal, Tonsillar swelling. Negative: Nasal congestion, Nasal drainage, Trismus, Muffled/hoarse voice Dental Exam: Normal Neck exam: Normal Neck: Positive: Supple, Nontender, No Lymphadenopathy Respiratory Exam: Normal Respiratory: Positive: Chest non-tender, No respiratory distress, No accessory muscle use Cardiovascular Exam: Normal Cardiovascular: Positive: RRR, Pulses Normal, Brisk Capillary Refill Abdominal Exam: Normal Abdomen Description: Positive: Nontender, No Organomegaly, Soft Bowel Sounds: Positive: Present Musculoskeletal Exam: Normal Musculoskeletal: Positive: Strength Intact, ROM Intact, No Edema Neurological Exam: Normal Neurological: Positive: Alert, Muscle Tone Normal Psychological Exam: Normal Skin Exam: Other Skin: Positive: Other - see genital assessment UC Physical Exam Vital Signs On Initial Exam: Initial Vitals Temp Pulse Resp BP Pulse Ox 98.4 F 80 18 131/81 98 05/20/17 20:05 05/20/17 20:05 05/20/17 20:05 05/20/17 20:05 05/20/17 20:05 - Genitalia Exam Female Genitourinary: Other - 6x2 cm firm mass left side of vagina left labia, no erythema, firm no area of fluctulance Course/Dx - Course Course Of Treatment: sitz bath follow with RN SURGERY ICU, continue antibiodics as ordered - Differential Diagnoses - Skin Complaint Differential Diagnoses: Abscess, Cellulitis - Diagnoses Provider Diagnoses: Abscess left labia Discharge - Discharge Plan Condition: Stable Disposition: HOME Patient Education Materials: Warm Compress or Soak (ED), Bartholin Cyst (ED) Referrals: Corinne Quinn MD [Medical Doctor] - 4 Days Additional Instructions: The Incision and Drainage that was done 2 days ago was a temporary measure and the patient needs to be followed up with RN SURGERY ICU MD for definitive care---Please make a follow up appointment for the next 5-7 days---The cyst is firm again today and will not drain any further until the area "softens" warm sitz baths and compresses with assist in accomplishing this goal In the mean time finish the antibiotics and please use warm sitz bath every 4 hours while awake until resolved
== END 2017-05-20 23:14 | disposition home or self-care (01) ==
LOC: ED 19:58
DX: N76.4 Abscess of vulva (principal); R60.9 Edema, unspecified
CPT/HCPCS: 99282

== ENCOUNTER 2017-08-09 23:33 | Emergency (ER) | payer MEDICARE, MEDICAID ==
[2017-08-10 00:48] LABS: Urine Bilirubin Negative (Negative); Urine Glucose Negative (Negative); Urine Nitrite Negative (Negative)
[2017-08-10 00:50] LABS: Hematocrit 38 % (35-47); Hemoglobin 12.6 g/dl (12.0-16.0); Mean Corpuscular HGB Conc 33 g/dl (31-36); Mean Corpuscular Hemoglobin 29 pg (27-31); Mean Corpuscular Volume 88 fL (80-97); Mean Platelet Volume 9 um3 (7.4-10.4); Red Blood Count 4.31 10^6/ul (4.0-5.4); Red Cell Distribution Width 15 % (10.5-15); White Blood Count 8.3 10^3/ul (3.5-10.8)
[2017-08-10 00:58] LABS: Benzodiazepine Urine Screen None Detected (None Detect)
[2017-08-10 01:02] LABS: ALT 25 U/L (7-52); AST 19 U/L (13-39); Acetaminophen < 15 mcg/mL; Alcohol < 10 mg/dL (<10); Alkaline Phosphatase 53 U/L (34-104); Anion Gap 7 mmol/L (2-11); BUN/Creatinine Ratio 32.4 (8-20); Blood Urea Nitrogen 23 mg/dL (6-24); CO2 Carbon Dioxide 27 mmol/L (22-32); Calcium 8.9 mg/dL (8.6-10.3); Chloride 101 mmol/L (101-111); Creatine Kinase 64 U/L (10-223); EGFR African American 119.8 (>60); EGFR Non-African American 93.1 (>60); Globulin 2.6 g/dL (2-4); Glucose 105 mg/dL (70-100); Potassium 3.7 mmol/L (3.5-5.0); Salicylate < 2.50 mg/dL (<30); Sodium 135 mmol/L (133-145); Total Protein 6.6 g/dL (6.4-8.9)
[2017-08-10 01:15] VITALS: BP 121/56
[2017-08-10 01:19] LABS: TSH (Thyroid Stimulating Horm) 2.27 mcIU/mL (0.34-5.60)
--- NOTE | 2017-08-10 14:36 | ED ---
Hilton Dc Rebecca, scribed for Jennifer Villela MD on 08/10/17 at 0451 . Psychiatric Complaint - HPI Summary HPI Summary: Pt is a 37 y/o F who presents to ED s/p suicide attempt, attempted to strangle herself. Pt is a resident at [facility] and she has been experiencing stress due to her children being estranged as well as her friend from [facility] being recently kicked out. Tonight, the pt went into the bathroom at [facility] and attempted to strangle herself with her own hands, per pt. The attempt was unwitnessed and the pt alerted staff to the attempt upon leaving the bathroom. On evaluation, pt denies current SIs and depression. Denies abdominal, chest and neck pain and any changes to her voice. No prior suicide attempts. Pt is agreeable to return to [facility] and confirms that she has a counselor, Ted. MOORE last month and denies any chance of . A1. 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 Denies: Thoughts - Resolved - Allergies/Home Medications Allergies/Adverse Reactions: Allergies Allergy/AdvReac Type Severity Reaction Status Date / Time No Known Allergies Allergy Verified 03/08/16 13:05 PMH/Surg Hx/FS Hx/Imm Hx Endocrine/Hematology History: Reports: Hx Diabetes - gestational, Hx Thyroid Disease - nodule removed Cardiovascular History: Denies: Hx Hypertension Respiratory History: Denies: Hx Asthma, Hx Chronic Obstructive Pulmonary Disease (COPD) GI History: Denies: Hx Ulcer Psychiatric History: Reports: Hx of Violent Episodes Against Others Denies: Hx Eating Disorder - Surgical History Surgery Procedure, Year, and Place: 2 C-SECTIONS. PARTIAL THYROIDECTOMY Infectious Disease History: No Infectious Disease History: Reports: Hx Shingles, History Other Infectious Disease - gonorrhea Denies: Hx Clostridium Difficile, Hx Hepatitis, Hx Human Immunodeficiency Virus (HIV), Hx of Known/Suspected MRSA, Hx Tuberculosis, Hx Known/Suspected VRE , Hx Known/Suspected VRSA, Traveled Outside the [place] in Last 30 Days - Family History Known Family History: Positive: Other - Anxiety disorders, depression. Negative: Hypertension - Social History Lives: [facility] Alcohol Use: None Hx Substance Use: Yes Substance Use Type: Reports: Marijuana, Other - resident of [facility] 08/2017 Substance Use Comment - Amount & Last Used: "crack" last used 05/08/17 per patient Hx Tobacco Use: No Smoking Status (MU): Never Smoked Tobacco Review of Systems Constitutional: Negative ENT: Negative Positive: Other - no hoarse voice Negative: Chest Pain Respiratory: Negative Negative: Abdominal Pain Positive: Other - NEGATIVE: Neck pain Skin: Negative Positive: Other - no johansen on neck Neurological: Negative Positive: Other - NEGATIVE: SIs currently. Negative: Depressed All Other Systems Reviewed And Are Negative: Yes Physical Exam Triage Information Reviewed: Yes Vital Signs On Initial Exam: Initial Vitals Temp Pulse Resp BP Pulse Ox 98 F 74 16 129/72 99 08/09/17 23:47 08/09/17 23:47 08/09/17 23:47 08/09/17 23:47 08/09/17 23:47 Vital Signs Reviewed: Yes Appearance: Positive: No Pain Distress, Well-Nourished, Ill-Appearing Skin: Positive: Warm, Skin Color Reflects Adequate Perfusion, Other - no johansen on neck, thyroidectomy scar Head/Face: Positive: Normal Head/Face Inspection Eyes: Positive: EOMI, STEFAN, Conjunctiva Clear ENT: Positive: Normal ENT inspection, Pharynx normal, Other - Normal phonation. Negative: Muffled/hoarse voice Neck: Positive: Supple, Nontender, Other: - Surgical thyroid scar on the neck; no erythema or johansen on the skin Respiratory/Lung Sounds: Positive: Clear to Auscultation, Breath Sounds Present , Other - No repsiratory distress Cardiovascular: Positive: RRR, Pulses are Symmetrical in both Upper and Lower Extremities, Other - Brisk capillary refill. Negative: Murmur Abdomen Description: Positive: Nontender, Soft Musculoskeletal: Positive: Strength/ROM Intact Neurological: Positive: Sensory/Motor Intact, Alert, Oriented to Person Place, Time, CN Intact II-III, Facial Symmetry, Speech Normal Psychiatric: Positive: Affect/Mood Appropriate - [place] Coma Scale Coma Scale Total: 15 Diagnostics - Vital Signs Vital Signs Temp Pulse Resp BP Pulse Ox 08/10/17 01:14 98.7 F 77 16 121/56 100 08/09/17 23:47 98 F 74 16 129/72 99 - Laboratory Lab Results: Lab Results 08/10/17 08/10/17 08/10/17 Range/Units 00:00 00:00 00:00 WBC 8.3 (3.5-10.8) 10^3/ul RBC 4.31 (4.0-5.4) 10^6/ul Hgb 12.6 (12.0-16.0) g/dl Hct 38 (35-47) % MCV 88 (80-97) fL MCH 29 (27-31) pg MCHC 33 (31-36) g/dl RDW 15 (10.5-15) % Plt Count 280 (150-450) 10^3/ul MPV 9 (7.4-10.4) um3 Neut % (Auto) 51.7 (38-83) % Lymph % (Auto) 35.2 (25-47) % [place] % (Auto) 9.4 H (1-9) % Eos % (Auto) 2.9 (0-6) % Baso % (Auto) 0.8 (0-2) % Absolute Neuts (auto) 4.3 (1.5-7.7) 10^3/ul Absolute Lymphs (auto) 2.9 (1.0-4.8) 10^3/ul Absolute Monos (auto) 0.8 (0-0.8) 10^3/ul Absolute Eos (auto) 0.2 (0-0.6) 10^3/ul Absolute Basos (auto) 0.1 (0-0.2) 10^3/ul Absolute Nucleated RBC 0.01 10^3/ul Nucleated RBC % 0.1 Sodium 135 (133-145) mmol/L Potassium 3.7 (3.5-5.0) mmol/L Chloride 101 (101-111) mmol/L Carbon Dioxide 27 (22-32) mmol/L Anion Gap 7 (2-11) mmol/L BUN 23 (6-24) mg/dL Creatinine 0.71 (0.51-0.95) mg/dL Est GFR ( Amer) 119.8 (>60) Est GFR (Non-Af Amer) 93.1 (>60) BUN/Creatinine Ratio 32.4 H (8-20) Glucose 105 H (70-100) mg/dL Lactic Acid (0.5-2.0) mmol/L Calcium 8.9 (8.6-10.3) mg/dL Total Bilirubin 0.30 (0.2-1.0) mg/dL AST 19 (13-39) U/L ALT 25 (7-52) U/L Alkaline Phosphatase 53 (34-104) U/L Total Creatine Kinase 64 (10-223) U/L Total Protein 6.6 (6.4-8.9) g/dL Albumin 4.0 (3.2-5.2) g/dL Globulin 2.6 (2-4) g/dL Albumin/Globulin Ratio 1.5 (1-3) TSH 2.27 (0.34-5.60) mcIU/mL Beta HCG, Quant < 0.60 mIU/mL Urine Color Urine Appearance Urine pH (5-9) Ur Specific [place] (1.010-1.030) Urine Protein (Negative) Urine Ketones (Negative) Urine Blood (Negative) Urine Nitrate (Negative) Urine Bilirubin (Negative) Urine Urobilinogen (Negative) Ur Leukocyte Esterase (Negative) Urine Glucose (Negative) Salicylates < 2.50 (<30) mg/dL Urine Opiates Screen None detected (None Detect) Acetaminophen < 15 mcg/mL Ur Barbiturates Screen None detected (None Detect) Ur Phencyclidine Scrn None detected (None Detect) Ur Amphetamines Screen None detected (None Detect) U Benzodiazepines Scrn None detected (None Detect) Urine Cocaine Screen None detected (None Detect) U Cannabinoids Screen None detected (None Detect) Serum Alcohol < 10 (<10) mg/dL 08/10/17 08/10/17 Range/Units 00:00 00:00 WBC (3.5-10.8) 10^3/ul RBC (4.0-5.4) 10^6/ul Hgb (12.0-16.0) g/dl Hct (35-47) % MCV (80-97) fL MCH (27-31) pg MCHC (31-36) g/dl RDW (10.5-15) % Plt Count (150-450) 10^3/ul MPV (7.4-10.4) um3 Neut % (Auto) (38-83) % Lymph % (Auto) (25-47) % [place] % (Auto) (1-9) % Eos % (Auto) (0-6) % Baso % (Auto) (0-2) % Absolute Neuts (auto) (1.5-7.7) 10^3/ul Absolute Lymphs (auto) (1.0-4.8) 10^3/ul Absolute Monos (auto) (0-0.8) 10^3/ul Absolute Eos (auto) (0-0.6) 10^3/ul Absolute Basos (auto) (0-0.2) 10^3/ul Absolute Nucleated RBC 10^3/ul Nucleated RBC % Sodium (133-145) mmol/L Potassium (3.5-5.0) mmol/L Chloride (101-111) mmol/L Carbon Dioxide (22-32) mmol/L Anion Gap (2-11) mmol/L BUN (6-24) mg/dL Creatinine (0.51-0.95) mg/dL Est GFR ( Amer) (>60) Est GFR (Non-Af Amer) (>60) BUN/Creatinine Ratio (8-20) Glucose (70-100) mg/dL Lactic Acid 1.2 (0.5-2.0) mmol/L Calcium (8.6-10.3) mg/dL Total Bilirubin (0.2-1.0) mg/dL AST (13-39) U/L ALT (7-52) U/L Alkaline Phosphatase (34-104) U/L Total Creatine Kinase (10-223) U/L Total Protein (6.4-8.9) g/dL Albumin (3.2-5.2) g/dL Globulin (2-4) g/dL Albumin/Globulin Ratio (1-3) TSH (0.34-5.60) mcIU/mL Beta HCG, Quant mIU/mL Urine Color Yellow Urine Appearance Clear Urine pH 5.0 (5-9) Ur Specific [place] 1.024 (1.010-1.030) Urine Protein Negative (Negative) Urine Ketones Negative (Negative) Urine Blood Negative (Negative) Urine Nitrate Negative (Negative) Urine Bilirubin Negative (Negative) Urine Urobilinogen Negative (Negative) Ur Leukocyte Esterase Negative (Negative) Urine Glucose Negative (Negative) Salicylates (<30) mg/dL Urine Opiates Screen (None Detect) Acetaminophen mcg/mL Ur Barbiturates Screen (None Detect) Ur Phencyclidine Scrn (None Detect) Ur Amphetamines Screen (None Detect) U Benzodiazepines Scrn (None Detect) Urine Cocaine Screen (None Detect) U Cannabinoids Screen (None Detect) Serum Alcohol (<10) mg/dL Result Diagrams: 08/10/17 00:00 08/10/17 00:00 Lab Statement: Any lab studies that have been ordered have been reviewed, and results considered in the medical decision making process. Course/Dx - Course Assessment/Plan: Pt is a 37 y/o F who presents to ED s/p suicide gesture. Pt is a resident at [facility] and she has been experiencing stress due to her children being estranged as well as her friend from [facility] being recently kicked out. Tonight, the pt went into the bathroom at [facility] and attempted to strangle herself with her own hands, per pt. The attempt was unwitnessed and the pt alerted staff to the attempt upon leaving the bathroom. On evaluation, pt denies current SIs and depression. Denies abdominal, chest and neck pain and any changes to her voice. No prior suicide attempts. Pt is agreeable to return to [facility] and confirms that she has a counselor, Ted. MOORE last month and denies any chance of . A1. Upon completion of MHE and consultatoin with Dr. Topete, it has been determined that the pt can be D/C to home. She will be D/ C with Dx of depression. She understands and agrees. Patient medications reviewed this visit. Elevated BP noted. - Differential Dx/Clinical Impression Differential Diagnosis/HQI/PQRI: Positive: Anxiety, Depression, Suicidal Gesture Provider Diagnosis: Depression, Elevated BP without diagnosis of hypertension, Suicide gesture - Physician Notifications Discussed Care Of Patient With: Johnny Topete - via psych auto fleet manager Discharge - Discharge Plan Condition: Stable Disposition: HOME Patient Education Materials: Depression (ED), Suicide Prevention for Adults (ED ) Referrals: [place] [Other] (Please return directly to the inpatient treatment program at [facility] No Primary Care Phys,NOPCP [Primary Care Provider] - The documentation as recorded by the Hilton vogel Rebecca accurately reflects the service I personally performed and the decisions made by me, Jennifer Villela MD.
== END 2017-08-10 05:00 | disposition home or self-care (01) ==
LOC: ED 23:33
DX: F32.9 Major depressive disorder, single episode, unspecified (principal); R03.0 Elevated blood-pressure reading, without diagnosis of hypertension
CPT/HCPCS: 36415; 80053; 80307; 80320; 80329; 81003; 82550; 83605; 84443; 84702; 85025; 99284; G0480

== ENCOUNTER 2017-09-24 12:06 | Emergency (ER) | payer MEDICARE, MEDICAID ==
[2017-09-24 12:14] VITALS: BP 141/77
--- NOTE | 2017-09-24 13:01 | UC ---
Complaint Female HPI - HPI Summary HPI Summary: Has had painful swelling in bartholin glads before, last episode was this summer while pt was at rehab. Had it drained, has not see an auto design detailer for it. Now it has started again for the last 2-3 days, in lots of pain. 2 sexual partners in the last few months, has not been tested for STIs for more than 6 months, does have hx of STIs. - History Of Current Complaint Chief Complaint: UCSkin Stated Complaint: SOFT TISSUE COMPLAINT Time Seen by Provider: 09/24/17 12:42 Hx Obtained From: Patient Hx Last Menstrual Period: 08/3117 ?: No Onset/Duration: Gradual Onset, Lasting Days Timing: Constant Severity Initially: Mild Severity Currently: Moderate Character: Sharp Aggravating Factor(s): Movement, [place] Alleviating Factor(s): Position - Allergies/Home Medications Allergies/Adverse Reactions: Allergies Allergy/AdvReac Type Severity Reaction Status Date / Time No Known Allergies Allergy Verified 09/24/17 12:14 PMH/Surg Hx/FS Hx/Imm Hx Endocrine History: Diabetes - gestational, Thyroid Disease - Surgical History Surgical History: Yes Surgery Procedure, Year, and Place: 2 C-SECTIONS. PARTIAL THYROIDECTOMY - Family History Known Family History: Positive: None, Other - Anxiety disorders, depression. Negative: Hypertension - Social History Alcohol Use: None Substance Use Type: Marijuana, Other Substance Use Comment - Amount & Last Used: "crack" last used 05/08/17 per patient Smoking Status (MU): Never Smoked Tobacco - Immunization History Most Recent Influenza Vaccination: 08/17 Most Recent Tetanus Shot: unk Most Recent Pneumonia Vaccination: n/a Review of Systems Constitutional: Negative Skin: Other - painful lump near vagina Eyes: Negative ENT: Negative Respiratory: Negative Cardiovascular: Negative Gastrointestinal: Negative Genitourinary: Negative Motor: Negative Neurovascular: Negative Musculoskeletal: Negative Neurological: Negative Psychological: Negative Is Patient Immunocompromised?: No All Other Systems Reviewed And Are Negative: Yes Physical Exam Triage Information Reviewed: Yes Appearance: Well-Appearing, Pain Distress - mild with movement, Obese Vital Signs: Initial Vital Signs Temp 98.5 F 09/24/17 12:10 Pulse 94 09/24/17 12:10 Resp 18 09/24/17 12:10 BP 141/77 09/24/17 12:10 Vital Signs Reviewed: Yes Eye Exam: Normal Eyes: Positive: Conjunctiva Clear ENT Exam: Normal ENT: Positive: Normal ENT inspection, Hearing grossly normal, Pharynx normal, TMs normal Neck exam: Normal Neck: Positive: Supple, Nontender, No Lymphadenopathy Respiratory Exam: Normal Respiratory: Positive: Chest non-tender, Lungs clear, Normal breath sounds, No respiratory distress, No accessory muscle use Cardiovascular Exam: Normal Cardiovascular: Positive: RRR, No Murmur Musculoskeletal Exam: Normal Neurological Exam: Normal Neurological: Positive: Alert Psychological Exam: Normal Skin Exam: Other - external genital exam performed -- palpably swollen, firm, fluctuant L bartholin gland. No drainage or visible cellulitis around it. Vaginal swab obtained. Procedures - Incision and Drainage Site: L bartholin gland Anesthesia: Topical - 4% lidocaine Instrument(s): Scalpel - large pus return, 20-30mL Packing: Other - none Complaint Female Dx - Differential Dx/Diagnosis Provider Diagnoses: L Bartholin glan abscess, recurrent Discharge - Discharge Plan Condition: Stable Disposition: HOME Prescriptions: Naproxen [Naproxen 500 mg] 500 mg PO Q8H PRN #15 tab PRN Reason: Pain Sulfamethox/Trimethoprim DS* [Bactrim DS 800/160 TAB*] 1 tab PO BID #14 tab Patient Education Materials: Incision and Drainage (ED), Bartholin Cyst (ED) Referrals: No Primary Care Phys,NOPCP [Primary Care Provider] - Yonathan Sarah MD [Medical Doctor] - 1 Week Additional Instructions: Do warm compresses several times per day to encourage the area to drain. Please follow up with the gynecology referral for more definitive treatment. If you have increasing swelling, increasing pain, or fever, please go to the emergency department.
[2017-09-24] MEDS ORDERED: Lidocaine 4% TOPICAL* 50 ML TOP.SOLN TOPICAL ONE (13:02)
--- NOTE | 2017-09-24 18:26 | ED ---
Progress - Progress Note Progress Note: Pt witj + MRSA abscess I+D on Bactrim await sensitivities no change Hue 09/24/17 Course/Dx - Diagnoses Provider Diagnoses: Bartholin's gland abscess
--- NOTE | 2017-09-25 22:00 | UC ---
Progress - Progress Note Progress Note: Pt witj + MRSA abscess I+D on Bactrim await sensitivities no change Hue 09/24/17 neg GC/CH [facility] 09/25/17
== END 2017-09-24 13:43 | disposition home or self-care (01) ==
LOC: UCEAST 12:06
DX: N75.1 Abscess of Bartholin's gland (principal); B96.20 Unspecified Escherichia coli [E. coli] as the cause of diseases classified elsewhere; A49.02 Methicillin resistant Staphylococcus aureus infection, unspecified site; F14.90 Cocaine use, unspecified, uncomplicated; F12.90 Cannabis use, unspecified, uncomplicated
CPT/HCPCS: 87070; 87077; 87186; 87205; 87491; 87591; 87640; 87641; 99212; G0463

== ENCOUNTER 2017-09-28 10:25 | Emergency (ER) | payer MEDICARE, MEDICAID ==
[2017-09-28 10:53] VITALS: BP 136/66
--- NOTE | 2017-09-28 11:29 | UC ---
Complaint Female HPI - HPI Summary HPI Summary: Pt presents with vaginal pain. She tells me that she was seen 4 days ago for this same issue and diagnosed with a bartholin abscess. Cultures were done and she was placed on Bactrim after an I&D was performed. She is here today for continued pain and believes the area needs to be drained again. She tells me that she cannot get into an OBGYN locally because she owes them money and they refuse to see her. She denies fever, chills, vaginal discharge, abnormal bleeding, dysuria, hematuria, or urinary frequency. - History Of Current Complaint Chief Complaint: UCGeneralIllness Stated Complaint: PERSONAL Time Seen by Provider: 09/28/17 11:28 Hx Obtained From: Patient Hx Last Menstrual Period: 09/28/2017 ?: No Onset/Duration: Gradual Onset Timing: Constant Severity Initially: Mild Severity Currently: Mild Pain Intensity: 3 Pain Scale Used: 0-10 Numeric Character: Sharp Aggravating Factor(s): Movement Alleviating Factor(s): Position - Allergies/Home Medications Allergies/Adverse Reactions: Allergies Allergy/AdvReac Type Severity Reaction Status Date / Time No Known Allergies Allergy Verified 09/28/17 10:45 PMH/Surg Hx/FS Hx/Imm Hx Previously Healthy: Yes Psychological History: Anxiety, Depression - Surgical History Surgical History: Yes Surgery Procedure, Year, and Place: 2 C-SECTIONS. PARTIAL THYROIDECTOMY - Family History Known Family History: Positive: None, Other - Anxiety disorders, depression. Negative: Hypertension - Social History Alcohol Use: None Substance Use Type: None Substance Use Comment - Amount & Last Used: "crack" last used 05/08/17 per patient Smoking Status (MU): Light Every Day Tobacco Smoker - Immunization History Most Recent Influenza Vaccination: 08/17 Most Recent Tetanus Shot: unk Most Recent Pneumonia Vaccination: n/a Review of Systems Constitutional: Negative Skin: Negative Genitourinary: Vaginal/Penile Pain Neurovascular: Negative Neurological: Negative Psychological: Negative All Other Systems Reviewed And Are Negative: Yes Physical Exam Triage Information Reviewed: Yes Appearance: Well-Appearing, Well-Nourished Vital Signs: Initial Vital Signs Temp 98.9 F 09/28/17 10:46 Pulse 91 09/28/17 10:46 Resp 18 09/28/17 10:46 BP 136/66 11/24/17 10:46 Pulse Ox 99 09/28/17 10:46 Vital Signs Reviewed: Yes Neck: Positive: Supple, Nontender, No Lymphadenopathy Respiratory: Positive: Chest non-tender, Lungs clear, Normal breath sounds, No respiratory distress, No accessory muscle use Cardiovascular: Positive: RRR, No Murmur, Pulses Normal Abdomen Description: Positive: Nontender, No Organomegaly, Soft. Negative: CVA Tenderness (R), CVA Tenderness (L), Distended, Guarding Bowel Sounds: Positive: Present - Additional Comments Genitalia exam: Approx 0.5mm diameter bartholin cyst vs nodule vs abscess along inside of the vagina @ 5:00 about the left bartholin gland. Painful when palpated. No discharge was expressed. No open sores or active lesions on labia or about the vagina. There is no erythema, edema, or discharge from the site. Exam somewhat limited due to patient currently menstruating. Complaint Female Dx - Course Course Of Treatment: Area in question is only bothersome when palpated. She tells me it was much more painful and draining a few days ago. Appears Patrice is doing well for treatment. It is unfortunate that local OBGYN will not see her as a patient, however, pt has agreed to go to [place] to seek OBGYN care. Discussed possible treatment options for pain and pt elected to have a local anesthetic. A time out was performed, witnessed, and signed. 4mL of 0.25% bupivacaine without epi was administered and good anesthetization was achieved. No drainage was able to be expressed. Pt tolerated procedure well. - Differential Dx/Diagnosis Differential Diagnosis/HQI/PQRI: Bartholin Cyst Provider Diagnoses: Bartholin Abscess Discharge - Discharge Plan Condition: Stable Disposition: HOME Patient Education Materials: Abscess (ED), Bartholin Cyst (ED) Referrals: No Primary Care Phys,NOPCP [Primary Care Provider] - Rosanne Montero MD [Medical Doctor] - As Soon As Possible Additional Instructions: 1) Keep taking your antibiotic 2) Warm compresses to the area 3) Please call Dr. Montero at the number below to schedule an appointment for as soon as possible. 4) May take ibuprofen over the counter for pain If you develop a fever, SOB, chest pain, new or worsening symptoms - please call your PCP or go to the ED.
[2017-09-28] MEDS ORDERED: Bupivacaine 0.25% SDV* 30 ML INJ ONE (11:41)
[2017-09-28] MEDS ORDERED: Bupivacaine 0.25% SDV* 30 ML ONE (11:44)
== END 2017-09-28 12:15 | disposition home or self-care (01) ==
LOC: UCEAST 10:25
DX: N75.1 Abscess of Bartholin's gland (principal); F41.9 Anxiety disorder, unspecified; F32.9 Major depressive disorder, single episode, unspecified; F11.90 Opioid use, unspecified, uncomplicated; Z72.0 Tobacco use
CPT/HCPCS: 99211; G0463

== ENCOUNTER 2017-10-01 14:37 | Observation (INO) | payer MEDICARE, MEDICAID ==
[2017-10-01] MEDS ORDERED: HYDROmorphone INJ* 1 MG/ML CARPUJECT SYRINGE ONE ×2 (15:28→17:57)
[2017-10-01] MEDS ORDERED: Levofloxacin 500 MG IVPREMIX(* 500 MG/100 ML BAG IVPB ONE (18:20)
[2017-10-01] MEDS ORDERED: Lidocaine 1% MPF wEPI 200,000* 30 ML SDV ONE (18:49)
[2017-10-01] MEDS ORDERED: fentaNYL* 50 MCG/ML 2 ML VIAL (100 MCG VIAL) ONE (20:01)
[2017-10-01] MEDS ORDERED: Midazolam* 1 MG/ML 5 ML VIAL (5 MG) ONE (20:01)
[2017-10-01] MEDS ORDERED: Chloroprocaine 2%* 20 ML VIAL ONE (20:26)
[2017-10-01] MEDS ORDERED: Ketorolac INJ* 30 MG/ML 1 ML VIAL IV PRN (20:46)
[2017-10-01] MEDS ORDERED: Ondansetron INJ* 2 MG/ML VIAL IV PRN (20:50)
[2017-10-01] MEDS ORDERED: oxyCODONE/Acetamin 5/325 MG* TAB ONE (22:11)
[2017-10-01] MEDS: oxyCODONE/Acetamin 5/325 MG* TAB PO PRN (22:14)
[2017-10-01] MEDS: Ibuprofen TAB* 600 MG PO PRN (23:01)
[2017-10-02] MEDS: oxyCODONE/Acetamin 5/325 MG* TAB PO PRN (05:30)
[2017-10-02 08:57] VITALS: BP 99/68
[2017-10-02] MEDS: Ibuprofen TAB* 600 MG PO PRN ×2 (09:02→18:39)
[2017-10-02] MEDS: Amoxicillin/Clavulanate TAB* 500 MG PO SCH ×2 (09:02→18:40)
[2017-10-02] MEDS ORDERED: Levofloxacin 500 MG IVPREMIX(* 500 MG/100 ML BAG IVPB SCH (18:00)
--- NOTE | 2017-10-02 19:15 | OP ---
DATE OF OPERATION: 10/01/17 - ROOM #333 DATE OF : 82 SURGEON: Yonathan Sarah MD ANESTHESIOLOGIST: Dr. Guevara ANESTHESIA: Spinal. PRE-OP DIAGNOSES: Bartholin's abscess, vulvar abscess. POST-OP DIAGNOSES: Bartholin's abscess, vulvar abscess. OPERATIVE PROCEDURE: Marsupialization of Bartholin's abscess. ESTIMATED BLOOD LOSS: 50 cc. SPECIMENS: Include cultures of abscess. DRAINS: Packed with iodoform gauze. FINDINGS: This is a 37-year-old with a recurrent Bartholin's abscess, had been drained twice at [facility] in the last week and grew out Staph aureus and E. coli for which she was on Bactrim for. She was admitted for marsupialization of the Bartholin's abscess and started on Levaquin. At the time of surgery, findings include a large fluctuant mass along the left paravaginal vulvar sidewall and going up into labia minora. DESCRIPTION OF PROCEDURE: The patient identified, procedure identified as a marsupialization of a Bartholin's abscess. The patient was taken to the operating room, prepped and draped in the usual fashion in the dorsal lithotomy position under spinal anesthesia. The area was injected with 1% lidocaine with epinephrine. A 2 cm incision was made at the level of the introitus and opened up using a Rose Marie clamp until several loculations were opened and approximately 50 cc of purulent material was drained. Cultures were taken. The area was sutured and opened using 3-0 Polysorb at the 12, 3, 6 and 9 o'clock position. The abscess was then packed with 0.25 inch iodoform gauze. Good hemostasis was verified and the patient returned to recovery room in stable condition. All sponge and instrument counts were correct. [id number]/[facility] #: [id number] [facility] DIVISIONBrett
--- NOTE | 2017-10-06 03:18 | DS ---
DISCHARGE SUMMARY: DATE OF ADMISSION: 10/01/17 DATE OF DISCHARGE: 10/02/17 PRINCIPAL DIAGNOSIS: Vulvar abscess. PROCEDURES: Include a marsupialization of Bartholin's abscess. COMPLICATIONS: None. HISTORY OF PRESENT ILLNESS: This is a 37-year-old para 2 with tubal for control, who presented to the ER initially, on 09/24/17 with Bartholin's abscess. It was I and D'd. She had it again on , it was I and D'd again, and she had been placed on Bactrim, but she was taking it sporadicall y. She was in severe pain on admission and on exam, her vital signs were stable. She was afebrile. She had a 4-cm vulvar abscess on her left side, she was taken to the operating room. This was incise d and drained and the abscess cavity was sutured open. The patient did well postoperatively, went ho me after an overnight stay and treatment with IV Levaquin, was sent home on Augmentin orally and was to follow up in 2 days for packing removal. [id number]/[facility] #: [id number]
== END 2017-10-02 18:45 | disposition home or self-care (01) ==
LOC: OR 14:37 → SSU 21:45
PROVIDERS: ADMIT Obstetrics & Gynecology; ATTEND Obstetrics & Gynecology
PROC: 0U9L0ZZ Drainage of Vestibular Gland, Open Approach (ICD-10-PCS; principal; 2017-10-01 15:00)
DX: N75.1 Abscess of Bartholin's gland (principal)
CPT/HCPCS: 62323; 87070; 87073; 87076; 87077; 87205; 96374; A9270-GY; G0378; J1170; J1956; J2001; J2250; J2400; J2405; J3010